=== PATIENT | male | born 1985 | race African-American/Black ===

== ENCOUNTER 2017-10-10 16:25 | Emergency (ER) | payer MEDICAID ==
[~2017-10-10] VITALS: Ht 180.3 cm; Wt 100.0 kg
[2017-10-10] MEDS ORDERED: HYDROCODONE/ACETAMINOPHEN 5-325 MG TABLET PO ONE (17:45)
[2017-10-10 21:00] VITALS: BP 129/77
== END 2017-10-10 22:30 | disposition short-term general hospital (02) ==
LOC: EMS 16:26
DX: S32.601A Unspecified fracture of right ischium, initial encounter for closed fracture (principal); F17.210 Nicotine dependence, cigarettes, uncomplicated; V29.9XXA Motorcycle rider (driver) (passenger) injured in unspecified traffic accident, initial encounter; Y93.55 Activity, bike riding; Y92.820 Desert as the place of occurrence of the external cause; Y99.8 Other external cause status
CPT/HCPCS: 73502; 99285